=== PATIENT | female | born 1980 | race Caucasian/White ===

== ENCOUNTER → 2017-08-01 07:57 | Outpatient (CLI) | payer OTHER, SELFPAY ==
--- NOTE | 2017-08-01 07:59 | MM_ITS ---
MM Dig screening mamm BI w/CAD CAD Screening COMPARISON: None, this is baseline INDICATION: There is no personal or family history of breast cancer TECHNIQUE: Standard CC and MLO images were obtained. R2 CAD reviewed. FINDINGS: The breasts are composed primarily of fat with scattered fiber glandular densities throughout each breast. There is no suspicious lesion in the no suspicious microcalcifications. IMPRESSION: Fatty type breast parenchyma with no suspicious lesion seen BI-RADS Category: 1 Negative RECOMMENDED FOLLOW-UP: 1YR - 1 YEAR FOLLOW-UP after the age of 40. (A letter has been sent to the patient regarding results of the study.)
== END ==
PROVIDERS: Family Provider Family Medicine; PCP Family Medicine; Visit Provider Obstetrics & Gynecology
DX: Z12.31 Encounter for screening mammogram for malignant neoplasm of breast (principal)
CPT/HCPCS: 77067

== ENCOUNTER → 2018-08-12 10:27 | Outpatient (CLI) | payer OTHER, SELFPAY ==
[2018-08-12 12:14] LABS: Thyroid Stimulating Hormone 3.49 uIU/ml (0.358-3.740)
== END ==
PROVIDERS: Visit Provider Obstetrics & Gynecology
DX: N91.1 Secondary amenorrhea (principal)
CPT/HCPCS: 36415; 84443

== ENCOUNTER → 2021-11-09 14:35 | Outpatient (CLI) | payer OTHER, SELFPAY ==
--- NOTE | 2021-11-09 14:47 | US_ITS ---
FINAL REPORT CLINICAL HISTORY: dub FINDINGS: Transvaginal sonographic images of the pelvis were obtained. The uterus measures 8.9 x 4.9 x 4.5 cm. The endometrium measures 9 mm, which is within normal limits. No uterine mass is identified. The right ovary measures 3.6 cm in length and left ovary measures 4.2 cm in length. Normal blood flow seen to the ovaries. Bilateral benign-appearing ovarian cysts are present with the largest on the left measuring 3.5 x 1.9 x 1.3 cm. There is no evidence of free fluid. IMPRESSION: Bilateral ovarian cysts, largest on the left. Reviewed, Interpreted and Dictated by Jose M Alas MD Transcribed by Jenni Jara Authenticated and [facility]
[2021-11-09 15:40] LABS: Basophils # 0.1 K/mm3 (0-0.2); Basophils % 1.4 % (0.1-2.0); Eosinophils # 0.3 K/mm3 (0.0-0.4); Eosinophils % 3.2 % (0.1-12.0); Hematocrit 38.6 % (37.0-47.0); Hemoglobin 12.9 g/dL (12.2-16.2); Lymphocytes # 2.2 K/mm3 (0.7-4.5); Lymphocytes % 26.5 % (10-50); Mean Corpuscular HGB Conc 33.3 g/dL (31.8-35.4); Mean Corpuscular Hemoglobin 31.2 pg (27.0-31.2); Mean Corpuscular Volume 93.5 fl (81-99); Mean Platelet Volume 7.4 fl (7.4-10.4); Monocytes # 0.5 K/mm3 (0.1-1.0); Monocytes % 6.2 % (1.7-9.3); Neutrophils # 5.3 K/mm3 (1.8-7.8); Neutrophils % 62.7 % (37.0-80.0); Platelet Count 309 K/mm3 (142-424); Red Blood Count 4.13 M/mm3 (4.20-5.40); Red Cell Distribution Width 13.9 % (11.5-17.5); White Blood Count 8.5 K/mm3 (4.8-10.8)
[2021-11-09 16:43] LABS: Thyroid Stimulating Hormone 1.47 uIU/mL (0.465-4.68)
== END ==
PROVIDERS: PCP Family Medicine; Visit Provider Obstetrics & Gynecology
DX: N93.9 Abnormal uterine and vaginal bleeding, unspecified (principal); R09.89 Other specified symptoms and signs involving the circulatory and respiratory systems; N93.8 Other specified abnormal uterine and vaginal bleeding
CPT/HCPCS: 36415; 76830; 84443; 85025

== ENCOUNTER → 2022-02-27 16:16 | Outpatient (CLI) | payer OTHER, SELFPAY ==
[2022-02-27 17:00] LABS: Basophils # 0.1 K/mm3 (0-0.2); Basophils % 0.7 % (0.1-2.0); Eosinophils # 0.1 K/mm3 (0.0-0.4); Eosinophils % 0.8 % (0.1-12.0); Hematocrit 41.1 % (37.0-47.0); Hemoglobin 13.5 g/dL (12.2-16.2); Lymphocytes # 2.2 K/mm3 (0.7-4.5); Lymphocytes % 23.1 % (10-50); Mean Corpuscular HGB Conc 32.7 g/dL (31.8-35.4); Mean Corpuscular Hemoglobin 30.4 pg (27.0-31.2); Mean Platelet Volume 7.6 fl (7.4-10.4); Monocytes # 0.5 K/mm3 (0.1-1.0); Monocytes % 5.2 % (1.7-9.3); Neutrophils # 6.6 K/mm3 (1.8-7.8); Neutrophils % 70.3 % (37.0-80.0); Platelet Count 346 K/mm3 (142-424); Red Blood Count 4.42 M/mm3 (4.20-5.40); Red Cell Distribution Width 14.2 % (11.5-17.5); White Blood Count 9.4 K/mm3 (4.8-10.8)
[2022-02-27 17:17] LABS: Chloride 104 mmol/L (98-107); Potassium 4.4 mmoL/L (3.5-5.1); Sodium 140 mmol/L (136-145)
[2022-02-27 17:20] LABS: Alanine Aminotransferase 13 U/L (12-78); Albumin Level 4.5 g/dl (3.5-5.0); Albumin/Globulin Ratio 1.6 (1.1-1.8); Alkaline Phosphatase 66 U/L (38-126); Anion Gap 11.4 mEq/L (5-15); Aspartate Amino Transferase 17 U/L (14-36); Bilirubin,Total 0.4 mg/dl (0.2-1.3); Blood Urea Nitrogen 11 mg/dl (7-17); Calcium 9.1 mg/dl (8.4-10.2); Carbon Dioxide 29 mmol/L (22.0-30.0); Estimated Glomerular Filt Rate 79 ml/min (>60); GFR (African American) 96 ML/MIN (>60); Globulin 2.9 g/dL (1.3-3.2); Glucose 98 mg/dl (74-100); Total Protein,Serum 7.4 g/dl (6.3-8.2)
[2022-02-27 17:40] LABS: HCG,Quantitative < 2 mIU/ml (0-5.42)
== END ==
PROVIDERS: PCP Family Medicine; Visit Provider Obstetrics & Gynecology
DX: Z01.812 Encounter for preprocedural laboratory examination (principal); N92.1 Excessive and frequent menstruation with irregular cycle
CPT/HCPCS: 36415; 80053; 84702; 85025

== ENCOUNTER 2022-03-02 06:00 | Day surgery (SDC) | payer OTHER, SELFPAY ==
[2022-02-27 11:35] VITALS: BMI 41.1
[2022-03-02] VITALS (15 sets, daily range): BP systolic 110–142; BP diastolic 56–91; PULSE 64–79; RESP 16–18; TEMP 36.2–43; O2SAT 95–99
--- NOTE | 2022-03-02 07:03 | EXP.ANES.CKL ---
[facility] Disclaimer: The information contained in this section may have been updated after the patient was seen, as this information can be updated by other users. Medical History Abnormal vaginal bleeding Allergies Anxiety and depression Asthma Disc disease, degenerative, lumbar or lumbosacral Endometriosis History of gastroesophageal reflux (GERD) History of hypertension History of kidney stones History of pleurisy IBS (irritable bowel syndrome) Kidney stone Migraine Sinus headache Sleep apnea Surgical History H/O dilation and curettage H/O neck surgery History of appendectomy History of History of cholecystectomy History of tonsillectomy History of tubal ligation Family History Other Cancer Diabetes Heart attack Hyperlipidemia Hypertension Kidney stones Social History Smoking Status: Never smoker alcohol intake: never substance use type: denies use current occupational status: employed and unemployed Travel in the last 8 weeks: None [facility] Anesthesia Checklist Patient Identification Patient Identification: Arm Band Structural Data Admitted From: Home Planned Operative Procedure/s: Hysteroscopy, D&C, Novasure/Myosure Ablation Consent for Planned Operative Procedure(s) Verified: Yes Verified Documents: Surgical Consent and History and Physical NPO Status Verified Time NPO: 00:00 Additional verifications Anesthesia Reactions: No Hx Blood Transfusions: No Blood Transfusion Reaction: No Airway Assessment C-Spine Mobility Assessed: Yes TMJ Mobility Assessed: Yes Dentition: Edentulous Neurological Assessment Level of Consciousness: Awake and Alert Anesthesia Plan Anesthesia Risk discussed: Yes Anesthesia Plan: Verified ASA Class: III Anesthesia Type: General
--- NOTE | 2022-03-02 08:48 | EXP.OP.NOTE ---
Date of procedure: 03/17/22 Pre-op Diagnosis:: 1. Heavy Menstrual Bleeding 2. Dysfunctional Uterine Bleeding Post-op Diagnosis:: 1. Heavy Menstrual Bleeding 2. Dysfunctional Uterine Bleeding 3. Submucosal fibroid Procedure performed:: 1. D&C Hysteroscopy with Myosure excision of submucosal fibroid 2. Novasure Endometrial Ablation Surgeon:: Roya Casillas MD SOCIOLOGY RESEARCH ASSISTANT:: Ventura Gutierrez Anesthesia: GETA Estimated blood loss (mL): 5 Operative findings:: diffuse proliferative endometrium submucosal fibroid anterior uterine cavity wall Operative note:: The patient was taken to the operating room and general anesthesia was administered. She was prepped/draped in lithotomy position. The anterior lip of the cervix was grasped with a single tooth tenaculum and the cervix was dilated with Celis dilators of serially increasing size until the external os was able to accomodate the hysteroscope. The hysteroscope was advanced through the cervix and into the uterine cavity, which was distended with LR. Once the uterus was sufficiently distended, the cavity was evaluated and revealed a moderate amount of proliferative endometrial tissue throughout the cavity. A submucosal fibroid was noted on the anterior cavity wall. The Myosure was inserted into the hysteroscope and the fibroid was excised without difficulty or complication. Tissue biopsy of lateral cavity silver and posterior wall were performed and the Myosure and hysteroscope were removed from the uterus. The uterine cavity sounded to a length of 8cm with a cervical length of 3cm. The Novasure was inserted through the cervix and expanded to fit the width of the uterus, with a width of 4.3cm. After a successful cavity assessment, the device was deployed and the endometrial ablation was completed in 75 seconds. Once the device had turned off, the Novasure was removed from the uterus and the hysteroscope was reinserted into the uterine cavity. The cavity appeared diffusely cauterized. The hysteroscope was removed from the uterus and all instruments removed from the vagina. The tenaculum site was hemostatic. All sponge/lap/needle/instrument counts correct x2. Total EBL: 5 cc. The patient was taken out of lithotomy position, extubated and taken to the PACU in stable condition. Condition: stable Disposition: PACU Complications:: none
--- NOTE | 2022-03-02 09:02 | P.PNANES_ITS ---
[facility] Anesthesia Record Part I Anesthesia Record I Intake, IV Amount: 500 Estimated blood loss (mL): 10 Urine output (mL): 0 Blood Products used (#): none Blood Pressure: 142/88 SaO2: 99 Pulse Rate: 79 Respiratory Rate: 16 Temperature: 97.4 F Patient is:: Drowsy and Stable Stable to PACU at:: 08:25
--- NOTE | 2022-03-02 11:04 | P.PNANES_ITS ---
[facility] Anesthesia Record Part II Anesthesia Record Part II Discharge Time: 09:14 Destination: Surgical Day Care (OP Surgery) PACU nurse assessment reviewed?: Yes Patient Condition:: Good Anesthesia Complications:: None Swallowing reflex intact?: Yes Cyanosis?: No Blood Pressure: 133/85 Pulse Rate: 73 Temperature: 97.1 F Mental Status: Alert & Oriented Pain level:: 0 Nausea and/or vomitting:: None Intake, IV Amount: 0
== END 2022-03-02 10:00 | disposition home or self-care (01) ==
PROVIDERS: PCP Family Medicine; Visit Provider Obstetrics & Gynecology
PROC: (CPT 58561; principal; 2022-03-02 07:30)
DX: N92.0 Excessive and frequent menstruation with regular cycle (principal); N93.9 Abnormal uterine and vaginal bleeding, unspecified; D25.0 Submucous leiomyoma of uterus; Z79.899 Other long term (current) drug therapy
CPT/HCPCS: 58561; 58563; 96374; J2405

== ENCOUNTER → 2022-07-18 10:42 | Outpatient (CLI) | payer OTHER, SELFPAY ==
--- NOTE | 2022-07-18 10:42 | US_ITS ---
PROCEDURE: US TRANSVAGINAL CLINICAL INDICATION: abnormal bleeding after having ablation surgery COMPARISON: No exams were available for comparison FINDINGS: UTERUS: Anteverted and [id number] x 6cmx 4cm with a combined endometrial thickness of 7mm. Both the uterus and endometrium have a heterogenous texture. There is a large nabothian cyst in the anterior cervix that measures 1.8 x 1.8 x 1.4 cm. There is a small amount of free fluid in the cul-de-sac LEFT OVARY: [id number] with a volume of 4.2ml. There is a small echogenic focus in left ovary consistent with a corpus luteum. RIGHT OVARY: 3cmx [id number] with a volume of 12ml. Doppler flow to both ovaries are seen. IMPRESSION: 1. Normal-appearing anteverted uterus with a 7 millimeter endometrium. The anterior cervix has a collection of fluid consistent with a nabothian cyst 1.8 centimeters in size. 2. The uterus and endometrium have a heterogenous appearance. 3. There is trace fluid in the cul-de-sac. 4. Both ovaries are seen and appear normal. Dictated by: Ciaran Michel MD 07/19/2022 15:10 Ciaran Michel MD in OV 07/19/2022 15:10
== END ==
PROVIDERS: PCP Family Medicine; Visit Provider Obstetrics & Gynecology
DX: N93.9 Abnormal uterine and vaginal bleeding, unspecified (principal)
CPT/HCPCS: 76830